=== PATIENT | male | born 1995 | race Caucasian/White ===

== ENCOUNTER 2017-02-07 04:18 | Inpatient (IN) | payer BC, OTHER ==
[~2017-02-07] VITALS: Ht 188 cm; Wt 98.0 kg
[~2017-02-07 04:18] MED LIST: ARIP2TAB3 PO; LISD30CA4 PO; [UNRECOGNIZED DRUG - CODE] PO
--- NOTE | 2017-02-07 04:47 | EMERGENCY ROOM VISIT NOTE ---
History Report prepared by Deandre: Karlene Herrera Under the Supervision of: Dr. Tona Shukla D.O. First contact with patient: 04:27 Chief Complaint: MENTAL HEALTH EVALUATION Stated Complaint: ANXIETY,DEPRESSION,MENTAL HEALTH History of Present Illness EKG The patient is a 21 year old male who presents to the Emergency Room with complaints of worsening anxiety starting earlier today BOX SORTER. The police states that the patient called the police tonight because he wanted his mother to be arrested for trying to kill him through her suggestive mccoy. The police state that they convinced the patient to come be evaluated at the ED tonight. The police state the patient was denying any suicidal or homicidal ideation. The patient states that since he was 4 years old his mother has told him that he suffers from OCD and other mental disorders. The patient states that his freshmen year of college he was suffering from depression which he dealt with by abusing drugs and alcohol. He states due to his self-medication his mother sent him to a 30 day inpatient facility for his alcohol abuse followed by 5 months at a penitentiary house. The patient states that his mother has also made him see several other psychiatrists to treat his mental disorders. The patient states he was prescribed medications for his symptoms bur states that he feels better mentally when not on any medications. The patient states that he last took his medications in September 2016. He states that he is currently taking 12 credits and states that he recently went home for spring and states his interaction with his mother were good. The patient states that recently his anxiety has been good until today when his anxiety worsened. The patient states that he gets about 4 hours of sleep a night, but that he has not yet slept today. The patient denies any suicidal or homicidal ideation as well as denying abdominal pain. Source of History: patient, police Onset: earlier today BOX SORTER Position: other (global) Timing: worsening Associated Symptoms: No abdominal pain Note: Patient denies homicidal ideation or suicidal ideation. Review of Systems See HPI for pertinent positives & negatives. A total of 10 systems reviewed and were otherwise negative. Past Medical & Surgical Medical Problems: (1) No chronic past medical history Family History Cancer Diabetes mellitus Heart disease Hypertension Social History Smoking Status: Former Smoker Alcohol Use: occasionally Marital Status: single Housing Status: lives with roommate Occupation Status: [employer] student Current/Historical Medications No Active Prescriptions or Reported Meds Allergies Coded Allergies: No Known Allergies (Unverified , 02/07/17) Physical Exam Vital Signs Date Time Temp Pulse Resp B/P Pulse Ox O2 Delivery O2 Flow Rate FiO2 02/07/17 05:09 78 20 148/83 98 Room Air 02/07/17 04:20 37.0 70 20 187/97 97 Room Air Physical Exam General: Patient is pleasant, cooperative and hyperverbal. HEENT: Head - normocephalic and atraumatic Pupils are equal, round, and reactive to light. Extraocular eye muscles are intact, and sclera are anicteric. Nose - moist nasal mucosa without discharge. Mouth - moist buccal mucosa. Oropharynx is nonerythematous and there is no tonsillar exudate or edema noted. Neck: Supple; no JVD, nuchal rigidity, cervical lymphadenopathy. Heart: Regular rate and rhythm. There is a normal S1 and S2 with no murmurs, clicks, or gallops appreciated. Lungs: Clear to auscultation bilaterally with no wheezes, rales, or rhonchi. Abdomen: Soft, completely nontender, nondistended, with good bowel sounds. There are no palpable pulsatile masses or hepatosplenomegaly. There is no guarding, rigidity, or rebound noted. Extremities: No evidence of cyanosis, clubbing, or edema. There are easily palpable peripheral pulses. Skin: warm and dry with good turgor and no rashes. Psych:Severely manic, hyperverbal, denies substance abuse at this time. Extremely paranoid. Medical Decision & Procedures Laboratory Results 02/07/17 05:07 02/07/17 05:07 Test 02/07/17 04:32 02/07/17 05:07 Urine Color YELLOW Urine Appearance CLEAR (CLEAR) Urine pH 7.0 (4.5-7.5) Urine Specific [place] 1.003 (1.000-1.030) Urine Protein NEG (NEG) Urine Glucose (UA) NEG (NEG) Urine Ketones 1+ (NEG) Urine Occult Blood TRACE (NEG) Urine Nitrite NEG (NEG) Urine Bilirubin NEG (NEG) Urine Urobilinogen NEG (NEG) Urine Leukocyte Esterase NEG (NEG) Urine WBC (Auto) /hpf (0-5) Urine RBC (Auto) /hpf (0-4) Urine Hyaline Casts (Auto) /lpf (0-5) Urine Epithelial Cells (Auto) /lpf (0-5) Urine Bacteria (Auto) (NEG) Urine RBC 0-4 /hpf (0-4) Urine WBC 0 /hpf (0-5) Urine Epithelial Cells 0-5 /lpf (0-5) Urine Bacteria NEG (NEG) Urine Opiates Screen NEG (NEG) Urine Methadone, Qualitative NEG (NEG) Urine Barbiturates NEG (NEG) Urine Phencyclidine (PCP) Level NEG (NEG) Ur Amphetamine/Methamphetamine NEG (NEG) MDMA (Ecstasy) Screen NEG (NEG) Urine Benzodiazepines Screen NEG (NEG) Urine Cocaine Metabolite NEG (NEG) Urine Marijuana (THC) POS (NEG) Red Blood Count 5.13 M/uL (4.7-6.1) Mean Corpuscular Volume 86.5 fL (80-100) Mean Corpuscular Hemoglobin 31.8 pg (25-34) Mean Corpuscular Hemoglobin Concent 36.7 g/dl (32-36) RDW Standard Deviation 39.9 fL (36.4-46.3) RDW Coefficient of Variation 12.5 % (11.5-14.5) Mean Platelet Volume 8.7 fL (7.4-10.4) Anion Gap 12.0 mmol/L (3-11) Est Creatinine Clear Calc Drug Dose 113.3 ml/min Estimated GFR () 99.6 Estimated GFR (Non- 85.9 BUN/Creatinine Ratio 8.6 (10-20) Calcium Level 9.2 mg/dl (8.5-10.1) Total Bilirubin 1.0 mg/dl (0.2-1) Direct Bilirubin 0.2 mg/dl (0-0.2) Aspartate Amino Transf (AST/SGOT) 29 U/L (15-37) Alanine Aminotransferase (ALT/SGPT) 30 U/L (12-78) Alkaline Phosphatase 67 U/L (45-117) Total Protein 7.8 gm/dl (6.4-8.2) Albumin 4.8 gm/dl (3.4-5.0) Thyroid Stimulating Hormone (TSH) 1.630 uIu/ml (0.300-4.500) Salicylates Level < 1.7 mg/dl (2.8-20) Acetaminophen Level < 2 ug/ml (10-30) Ethyl Alcohol mg/dL < 3.0 mg/dl (0-3) Laboratory results per my review. ED Course 0435: Past medical records reviewed. The patient was evaluated in room A6. A complete history and physical exam was performed. Laboratory studies were drawn as above. 0540: I spoke to the machine adjuster leader case trim and [facility] will come evaluate the patient after he is mentally cleared. 0602: The patient was medically cleared and can now be evaluated by [facility]. 0627: I discussed the case with the staff from [facility] who have evaluated the patient. They have found him to be acutely paranoid, manic, and delusional. They felt he requires inpatient care but the patient is unwilling to be admitted. The machine adjuster leader case trim is filing a 302 petition. We went back to the patient's room to discuss his inpatient care and he was willing to sign himself in voluntarily. Medical Decision The patient is a 21 year old male who presents to the ED with anxiety. Differential diagnosis includes medication noncompliance, substance abuse, acute nav, paranoia, thought disorder and mood disorder. Labs: White Count 11.03 Stable H&H Normal TSH Normal LFTs Glucose 129 Normal Renal function Potassium 3.2 Tox Screen positive for marijuana. Tylenol Aspirin and Alcohol were negative. This is a 21-year-old male patient who presents to the emergency department with extreme paranoia and psychosis. The patient has a history of mental health issues and has not been taking his medications for the past 5 months. He believes that his mother is trying to kill him. He called police night to follow report that his mother was trying to harm him. On exam, the patient was hyperverbal, manic and acutely paranoid. He was cooperative. He was willing to admit himself voluntarily for inpatient psychiatric care. Impression Primary Impression: Acute paranoia Additional Impression: Noncompliance with medications Scribe Attestation The scribe's documentation has been prepared under my direction and personally reviewed by me in its entirety. I confirm that the note above accurately reflects all work, treatment, procedures, and medical decision making performed by me. Departure Information Dispostion Mental Health Acute Care Prescriptions No Active Prescriptions or Reported Meds Referrals No Doctor, Assigned (PCP) Patient Instructions My [facility] Problem Qualifiers
[2017-02-07 04:59] LABS: URINE APPEARANCE CLEAR (CLEAR); URINE BILIRUBIN NEG (NEG); URINE COLOR YELLOW; URINE NITRITE NEG (NEG); URINE SPECIFIC GRAVITY 1.003 (1.000-1.030); UROBILINOGEN NEG (NEG)
[2017-02-07 05:02] LABS: MANUAL MICROSCOPIC REQUIRED? YES; REVIEW REQ? NO
[2017-02-07 05:09] VITALS: O2SAT 98
[2017-02-07 05:11] LABS: URINE RBC 0-4 /hpf (0-4)
[2017-02-07 05:12] LABS: URINE BACTERIA NEG (NEG); URINE WBC 0 /hpf (0-5)
[2017-02-07 05:19] LABS: BENZODIAZEPINE, URINE NEG (NEG); COCAINE,URINE NEG (NEG); PHENCYCLIDINE, URINE NEG (NEG)
[2017-02-07 05:20] LABS: HEMATOCRIT 44.4 % (42-52); MEAN CELL VOLUME 86.5 fL (80-100); MEAN CORPUSCULAR HEMOGLOBIN 31.8 pg (25-34); MEAN CORPUSCULAR HGB CONC 36.7 g/dl (32-36); MEAN PLATELET VOLUME 8.7 fL (7.4-10.4); PLATELET COUNT 283 K/uL (130-400); RED BLOOD COUNT 5.13 M/uL (4.7-6.1); WHITE BLOOD COUNT 11.03 K/uL (4.8-10.8)
[2017-02-07 05:46] LABS: BUN/CREATININE RATIO 8.6 (10-20); CALCIUM 9.2 mg/dl (8.5-10.1); CREATININE 1.2 mg/dl (0.60-1.40); POTASSIUM 3.2 mmol/L (3.5-5.1)
[2017-02-07 05:56] LABS: ACETAMINOPHEN < 2 ug/ml (10-30); THYROID STIMULATING HORMONE 1.63 uIu/ml (0.300-4.500)
[2017-02-07] MEDS ORDERED: BISMUTH SUBSALICYLATE PER ML OMNICELL CHARGE PO PRN (07:15)
[2017-02-07] MEDS ORDERED: MAGNESIUM HYDROXIDE SUSP 30 ML UDC PO PRN (07:15)
[2017-02-07] MEDS ORDERED: hydrOXYzine HCL 25 MG TAB PO PRN ×2 (07:15)
[2017-02-07] MEDS ORDERED: SODIUM CHLORIDE 0.65% NA SOLN 45 ML (OCEAN) PRN (07:15)
[2017-02-07] MEDS ORDERED: ACETAMINOPHEN 325 MG TAB PO PRN (07:15)
[2017-02-07] MEDS ORDERED: ALUMINUM/MAGNESIUM SUSP 30 ML UDC PO PRN (07:15)
[2017-02-07] MEDS ORDERED: NURSING VERBAL MED ORDER ONE (07:15)
[2017-02-07 07:22] VITALS: BP 178/70; PULSE 62; TEMP 36.6; BMI 27.7
[2017-02-07] MEDS ORDERED: LORAZEPAM 1 MG TAB PO ONE (09:15)
[2017-02-07] MEDS ORDERED: RISPERIDONE ODT 1MG PO ONE (09:15)
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
[2017-02-07] MEDS: LORAZEPAM 1 MG TAB PO SCH (21:01)
[2017-02-07] MEDS: RISPERIDONE ODT 1MG PO SCH (21:01)
[2017-02-08 07:03] VITALS: BP_SYST 131; BP_SYST 144; BP_DIAS 81; BP_DIAS 87; PULSE 57; PULSE 61; TEMP 36.5
[2017-02-08 07:04] VITALS: Ht 188 cm; Wt 98.0 kg
[2017-02-08] MEDS: RISPERIDONE ODT 1MG PO SCH ×2 (07:40→21:42)
[2017-02-08] MEDS: LORAZEPAM 1 MG TAB PO SCH ×2 (07:40→21:42)
[2017-02-08 08:17] LABS: CHOLESTEROL/HDL RATIO 2.9
--- NOTE | 2017-02-08 10:10 | Psychiatric Progress Notes ---
Progress Note Date of Service Feb 08, 2017. Interval History 21 yo [employer] student, admitted voluntarily with acute psychosis, believing that his parents are conspiring to kill him. Chief Complaint "Calmer.". Subjective Patient was seen & assessed interval progress reviewed with Treatment Team. Nursing reports that the patient slept during the evening and night yesterday. Today he says that he feels "calmer" and recognizes the benefit of the meds. He continues to believe that his parents are out to kill him and wants no contact with them. "These are not just thoughts, they are my reality.". He says that he does not want to be here but understands why he is here, and that we will need to observe him for several days, but does not think he needs to be here beyond 72 hrs. When encouraged, he says that he is willing to attend groups so that we can observe his interactions with others. He denies SI/HI, denies aud/vis hallucinations. Review of Systems Constitutional: No chills, No fatigue, No fever, No problem reported, No sweats , No weakness, No weight loss ENT: No dental problems, No hearing loss, No nasal symptoms, No problem reported, No sore throat, No tinnitus, No trouble swallowing, No unusual epistaxis Respiratory: No cough, No dyspnea at rest, No dyspnea on exertion, No hemoptysis, No problem reported, No shortness of breath, No sputum, No wheezing Cardiovascular: No PND, No chest pain, No claudication, No edema, No orthopnea , No palpitations, No problem reported Abdomen: No GI bleeding, No constipation, No diarrhea, No nausea, No pain, No problem reported, No vomiting Musculoskeletal: No calf pain, No joint pain, No muscle pain, No problem reported, No swelling Neurologic: No balance problems, No memory loss, No numbness/tingling, No paralysis, No problem reported, No vertigo, No weakness Psychiatric: + problem reported (paranoid delusions that parents are trying to kill him) Integumentary: No bleeding, No color change, No itch, No new/changing skin lesions, No problem reported, No rash Sleep Information Total Hours of Sleep: 6.50 Meal Information Percent of Breakfast Consumed: 90 Percent of Lunch Consumed: 0 Percent of Dinner Consumed: 50 Mental Status Exam During interview pt is: alert and oriented, cooperative Appearance: appropriately dressed Eye contact is: good Motor behavior is: no abnormal motor movements Speech: normal in rate, rhythm & volume Affect: flat Mood is: irritable Thought process: goal directed Thought content: paranoid, delusions Suicidal thought are: denied Homicidal thoughts are: denied Hallucinations: denies auditory, denies visual Cognition: memory grossly intact, attention grossly intact Intelligence estimated to be: average Insight: impaired Judgement: impaired Impression The patient remains grossly paranoid, but with less agitation today. He does not want to be in the hospital but willing to remain today so that we can continue to evaluate and treat. Slept well. Will continue risperdal 1 mg. BID and ativan 1 mg. BID and encouraged use of prns if mind racing or distressed, which he agreed to do. Parents are here in town, but he is unwilling to allow any contact due to his paranoia. Continued Inpatient Care Continues to require inpatient care due to the severity of his condition and inability to manipulate information in a reality based manner. Plan (1) Unspecified psychosis 02/08 - continue rispderdal 1 mg. BID and encourage prns - Continue ativan 1 mg. BID and encourage prns - Involve parents when patient willing - Reality orientation - Q 15 min checks for safety - Encourage participation in group and individual counseling - DC MNPR as patient has been cooperative - The patient will need psychiatric aftercare (2) Cannabis abuse 02/08 - Recommend abstinence Discharge / Aftercare Planning Primary Care Physician: Name: [facility] [phone] Psychiatrist: Name: Dr Cole last Therapist: Name: kat Pocket Setter Lockstitch: Name: kat Visit Code E&M Code: 71035 Risk Factors Assessment Male: Yes : Yes /single/: Yes Higher / Fall in social status: No Access to guns: No Health problems: No Mental Health Diagnoses: Yes Substance use disorders: Yes Previous psychiatric stay: No Hopelessness: No Smoker: No Protective Factors Assessment : No Responsible for young children: No Employed: No Stable relationships: No Supportive family: Yes Good rapport with provider: No Data Vital Signs Last 24 Hrs: Date Time Temp Pulse Resp B/P Pulse Ox O2 Delivery O2 Flow Rate FiO2 02/08/17 07:03 36.5 57 16 144/81 61 131/87 Meds Administered Last 24 Hrs: Meds Administered (Past 24Hrs) Medications (Trade) Dose Ordered Sig/Meño Route Start Time Stop Time Status Last Admin Dose Admin Risperidone (Risperdal M Tab) 1 mg BID PO 02/07/17 22:00 03/09/17 21:59 02/08/17 07:40 1 MG Risperidone (Risperdal M Tab) 1 mg 0915 ONCE PO 02/07/17 09:15 02/07/17 09:38 DC 02/07/17 09:47 1 MG Lorazepam (Ativan Tab) 1 mg BID PO 02/07/17 22:00 03/09/17 21:59 02/08/17 07:40 1 MG Lorazepam (Ativan Tab) 1 mg 0915 ONCE PO 02/07/17 09:15 02/07/17 09:38 DC 02/07/17 09:47 1 MG Lab Results Last 24 Hrs: Last 24 Hours Test 02/08/17 07:31 Fasting Glucose 90 mg/dl Triglycerides Level 66 mg/dl Cholesterol Level 163 mg/dl HDL Cholesterol 56 mg/dl LDL Cholesterol, Calculated 94 mg/dl VLDL Cholesterol, Calculated 13 mg/dl Cholesterol/HDL Ratio 2.9
[2017-02-08] MEDS: LORAZEPAM 1 MG TAB PO PRN ×2 (14:42→18:54)
[2017-02-08] MEDS: RISPERIDONE ODT 1MG PO PRN ×2 (14:43→18:54)
[2017-02-09 06:45] VITALS: BP_SYST 134; BP_SYST 143; BP_DIAS 65; BP_DIAS 79; PULSE 126; PULSE 92; TEMP 36.6
[2017-02-09] MEDS: LORAZEPAM 1 MG TAB PO SCH (08:03)
[2017-02-09] MEDS: RISPERIDONE ODT 1MG PO SCH ×2 (08:03→21:05)
[2017-02-09] MEDS: LORAZEPAM 1 MG TAB PO PRN (12:04)
[2017-02-09] MEDS: RISPERIDONE ODT 1MG PO PRN (12:12)
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
[2017-02-09 15:15] VITALS: PULSE 96
[2017-02-09] MEDS: LORAZEPAM 0.5 MG TAB PO SCH (21:04)
[2017-02-10 06:45] VITALS: BP_SYST 132; BP_SYST 138; BP_DIAS 66; BP_DIAS 82; PULSE 111; PULSE 71; TEMP 36.8
[2017-02-10] MEDS: LORAZEPAM 0.5 MG TAB PO SCH (07:55)
[2017-02-10] MEDS: RISPERIDONE ODT 1MG PO SCH ×2 (07:55→21:38)
--- NOTE | 2017-02-10 13:29 | Psychiatric Progress Notes ---
Progress Note Date of Service Feb 10, 2017. Interval History 21 yo [employer] student, admitted voluntarily with acute psychosis, believing that his parents are conspiring to kill him. Chief Complaint "I really just want to get out of here". Subjective Patient was seen & assessed interval progress reviewed with Treatment Team. Parents updated by phone with his permission. Reviewed that appears to be substance induced psychosis with probably underlying mood disorder ie bipolar but cannot fully delineate in context of acute episode. Obviously combination of factors as misusing a workout supplement that probably included caffeine and/ or high dose B vitamins. He states he is tolerating medications and thoughts have cleared. He is no longer having delusions about his psychiatrist or family and is focussed abstinence from MJ. Review of Systems Psych: denies symptoms other than stated above Constitutional: denied Cardiovascular: denied GI: denied Neurologic: denied Remainder of 10 body systems also reviewed and denied other than noted above. Sleep Information Total Hours of Sleep: 6.50 Meal Information Percent of Breakfast Consumed: 50 Percent of Lunch Consumed: 90 Percent of Dinner Consumed: 75 Mental Status Exam During interview pt is: alert and oriented, cooperative Appearance: appropriately dressed Eye contact is: good Motor behavior is: psychomotor agitation (restless) Speech: other (fast but not pressured) Affect: labile (switched rapidly from euthymic to tearful and anxious, appropriately tearful with staff after MD visit) Mood is: other ("ready") Thought process: goal directed Thought content: reality based without delusions Suicidal thought are: denied Homicidal thoughts are: denied Hallucinations: denies auditory, denies visual Cognition: memory grossly intact, attention grossly intact Intelligence estimated to be: average Insight: limited Judgement: limited Impression Paranoia and agitation are improved. Speech still seems fast but family feel his irritability and voice on phone seem baseline. He is currently refusing to rescind his 72 hour notice, he is disappointed but agreeable to stay in hospital until family visit in person and can assist him with transitioning home. There is no current indication for involuntary commitment but will be monitored overnight. Family aware 72 hour notice expires tomorrow at 2 pm. Continued Inpatient Care Continues to require inpatient care due to the severity of his condition and inability to manipulate information in a reality based manner. Plan (1) Unspecified psychosis 02/08 - continue rispderdal 1 mg. BID and encourage prns - Continue ativan 1 mg. BID and encourage prns - Involve parents when patient willing - Reality orientation - Q 15 min checks for safety - Encourage participation in group and individual counseling - DC MNPR as patient has been cooperative - The patient will need psychiatric aftercare 02/09 - continue risperidone - Taper lorazepam 0.5mg bid x 2 days, then 0.5mg hs x2 days, then stop. - Encourage groups attendance and participation. - Family meeting - now willing to sign KATELIN for parents. - Discharge planning. 02/10 --refused Ativan this am, no subjective withdrawal, has Ativan prn should agitation recur --will convert Risperdal to regular tab upon discharge (2) Cannabis abuse 02/08 - Recommend abstinence 02/10 - Brief intervention was offered and accepted; Intervention (if performed) was [greater than 5] min in length. Brief interventions include: 1. Assess Readiness to Quit, 2. Advise: Help Patient to Reduce or Abstain from MJ and supplement 3. Agree: Set Specific, Feasible Goals, 4. Assist: Anticipate barriers, Problem-Solving Solutions. Social work to 5. Arrange: Referrals to appropriate treatment. Summary of intervention: The patient is in action stage with regards to transtheoretical model of change. The patient is advised to abstain from MJ due to thought disorder/mood issues. The patient agreed to substance use counseling as part of his outpatient therapy at a [facility] to [facility]. Discharge / Aftercare Planning Primary Care Physician: Name: [facility] [phone] Phone Number: [phone] Appointment Notes: as needed Psychiatrist: Name: Dr Cole Date of Appointment: Feb 17, 2017 Time of Appointment: 11:15am Therapist: Name: Musa [facility] Phone Number: [phone] Date of Appointment: Feb 13, 2017 Time of Appointment: 10:30am Appointment Notes: [address] [facility] [address] Therapeutic Consultant: Name: kat Visit Code E&M Code: 30393 Risk Factors Assessment Male: Yes : Yes /single/: Yes Higher / Fall in social status: No Access to guns: No Health problems: No Mental Health Diagnoses: Yes Substance use disorders: Yes Previous psychiatric stay: No Hopelessness: No Smoker: No Protective Factors Assessment : No Responsible for young children: No Employed: No Stable relationships: No Supportive family: Yes Good rapport with provider: No Data Vital Signs Last 24 Hrs: Date Time Temp Pulse Resp B/P Pulse Ox O2 Delivery O2 Flow Rate FiO2 02/10/17 06:45 36.8 111 16 138/66 71 132/82 02/09/17 15:15 96 Meds Administered Last 24 Hrs: Meds Administered (Past 24Hrs) Medications (Trade) Dose Ordered Sig/Meño Route Start Time Stop Time Status Last Admin Dose Admin Lorazepam (Ativan Tab) 0.5 mg Taper BID PO 02/09/17 22:00 02/10/17 12:37 DC 02/09/17 21:04 0.5 MG
[2017-02-10] MEDS: LORAZEPAM 1 MG TAB PO PRN (17:36)
[2017-02-11 06:55] VITALS: BP_SYST 138; BP_SYST 143; BP_DIAS 80; BP_DIAS 85; PULSE 72; PULSE 75; TEMP 36.6
[2017-02-11] MEDS: RISPERIDONE ODT 1MG PO SCH (08:45)
[2017-02-11] MEDS ORDERED: RISP1TAB3 PO (09:33)
--- NOTE | 2017-02-11 09:39 | Discharge Instructions ---
Discharge Information Report Includes Report will include the: Discharge Instructions & Summary Admission Admission Date / Time: Feb 07, 2017 at 07:04 Reason for Admission: Psychosis Disorder, Nos Discharge Discharge Diagnosis / Problem: unspecified psychotic disorder Condition at Discharge: Good Discharge Goals Goal(s): Improve function, Improve disease control Activity Recommendations Activity Limitations: resume your previous activity . Instructions / Follow-Up Instructions / Follow-Up . SPECIAL CARE INSTRUCTIONS: 1. Follow through with your scheduled aftercare appointments. If unable to keep an appointment, please call to reschedule. 2. Take your medication only as prescribed. Medication should not be changed or stopped without the approval of your doctor. In the event of worsening symptoms or concerns about side effects, contact your doctor immediately. 3. Utilize new healthy coping skills, anger management skills, and stress management skills learned during your hospitalization. Journal feelings and process them with a support person. Identify stressors or situations that may result in relapse, deterioration or inappropriate behaviors and develop a plan to deal with those issues. 4. If your coping skills are ineffective and you are in crisis, contact your outpatient providers for direction. If unable to reach your providers, please call the CAN HELP LINE AT or go to the closest Emergency Room. 5. Avoid alcohol and un-prescribed drugs. 6. You have been provided with the Mental Health Advance Directives Pamphlet for your review. AFTERCARE APPOINTMENTS: * Please call your insurance company prior to your scheduled appointment to confirm your aftercare providers are covered. Take your insurance information to your appointments. . Discharge / Aftercare Planning Primary Care Physician: Name: [facility] [phone] Phone Number: [phone] Appointment Notes: as needed Psychiatrist: Name: Dr Cole Date of Appointment: Feb 17, 2017 Time of Appointment: 11:15am Therapist: Name Of Therapist: [facility] Phone Number: [phone] Date of Appointment: Feb 13, 2017 Time of Appointment: 10:30am Appointment Comments: [address] [facility] [address] Chairman Of The Board: Name: kat . Follow-Up Care Plan for Follow-Up Care: recommend that you follow up with S for blood pressure monitoring. Current Hospital Diet Patient's current hospital diet: Regular Diet Discharge Diet Recommended Diet: Regular Diet Procedures Procedures Performed: No Pending Studies Pending Studies at Discharge: No Medical Emergencies . Who to Call and When: Medical Emergencies: For questions or emergencies related to your hospital stay, please contact the Inpatient Behavioral Health Unit at [phone]. A entry level paralegal is on-call 12/06 for the Behavioral Health Unit for emergencies At any time you feel your situation is an emergency, you may also call 911 immediately. . Non-Emergent Contact Non-Emergency issues call your: Primary Care Provider, Psychiatrist, Therapist Advance Directives Existing Advance Directive: No Do You Have an Existing Mental: No Existing Living Will: No Existing Power of Vocational Nurse: No Advance Directives Info Given: To Pt/S.O. Advance Directives Reason: Declines as Mental Health Visit. Discharge Summary Admission HPI Per the Admitting provider: See H&P. Hospital Course (1) Unspecified psychosis 02/08 - continue rispderdal 1 mg. BID and encourage prns - Continue ativan 1 mg. BID and encourage prns - Involve parents when patient willing - Reality orientation - Q 15 min checks for safety - Encourage participation in group and individual counseling - DC MNPR as patient has been cooperative - The patient will need psychiatric aftercare 02/09 - continue risperidone - Taper lorazepam 0.5mg bid x 2 days, then 0.5mg hs x2 days, then stop. - Encourage groups attendance and participation. - Family meeting - now willing to sign KATELIN for parents. - Discharge planning. 02/10 --refused Ativan this am, no subjective withdrawal, has Ativan prn should agitation recur --will convert Risperdal to regular tab upon discharge (2) Cannabis abuse 02/08 - Recommend abstinence 02/10 - Brief intervention was offered and accepted; Intervention (if performed) was greater than 5 min in length. Brief interventions include: 1. Assess Readiness to Quit, 2. Advise: Help Patient to Reduce or Abstain from MJ and supplement 3. Agree: Set Specific, Feasible Goals, 4. Assist: Anticipate barriers, Problem-Solving Solutions. Social work to 5. Arrange: Referrals to appropriate treatment. Summary of intervention: The patient is in action stage with regards to transtheoretical model of change. The patient is advised to abstain from MJ due to thought disorder/mood issues. The patient agreed to substance use counseling as part of his outpatient therapy at [facility]. Risk Factors Assessment Male: Yes : Yes /single/: Yes Higher / Fall in social status: No Access to guns: No Health problems: No Mental Health Diagnoses: Yes Substance use disorders: Yes Previous psychiatric stay: No Hopelessness: No Smoker: No Protective Factors Assessment : No Responsible for young children: No Employed: No Stable relationships: No Supportive family: Yes Good rapport with provider: No Day of Discharge Assessment Did not express any delusions overnight and behaviorally appropriate in unit activities. Said he spoke with his parents this am about joining a fraternity but states it was more of a thought, reviewed focus on return to school/ recovery and follow-up appointments. He is aware that [facility] may not support his plan to abstain from MJ. Reviewed that Risperdal will be switched to tablets. He is not able to recall the name of the supplement that is his roommate's but states he won't take it again. He attributes borderline BPs here to anxiety about discharge this am. He is alert and cooperative. His speech is normal in rate and volume today and he is actually thankful that he remained in the hospital overnight as he feels "even more 100% today". He denies SI/HI/cat and delusions. His thoughts are organized. There is not evidence of medication side effects. Laboratory Test 02/07/17 04:32 02/07/17 05:07 02/08/17 07:31 Urine Color YELLOW Urine Appearance CLEAR Urine pH 7.0 Urine Specific [place] 1.003 Urine Protein NEG Urine Glucose (UA) NEG Urine Ketones 1+ Urine Occult Blood TRACE Urine Nitrite NEG Urine Bilirubin NEG Urine Urobilinogen NEG Urine Leukocyte Esterase NEG Urine WBC (Auto) Urine RBC (Auto) Urine Hyaline Casts (Auto) Urine Epithelial Cells (Auto) Urine Bacteria (Auto) Urine RBC 0-4 Urine WBC 0 Urine Epithelial Cells 0-5 Urine Bacteria NEG Urine Opiates Screen NEG Urine Methadone, Qualitative NEG Urine Barbiturates NEG Urine Phencyclidine (PCP) Level NEG Ur Amphetamine/Methamphetamine NEG MDMA (Ecstasy) Screen NEG Urine Benzodiazepines Screen NEG Urine Cocaine Metabolite NEG Urine Marijuana (THC) POS Urine Marijuana (THC Carboxy Acid) 98 White Blood Count 11.03 Red Blood Count 5.13 Hemoglobin 16.3 Hematocrit 44.4 Mean Corpuscular Volume 86.5 Mean Corpuscular Hemoglobin 31.8 Mean Corpuscular Hemoglobin Concent 36.7 RDW Standard Deviation 39.9 RDW Coefficient of Variation 12.5 Platelet Count 283 Mean Platelet Volume 8.7 Sodium Level 138 Potassium Level 3.2 Chloride Level 104 Carbon Dioxide Level 22 Anion Gap 12.0 Blood Urea Nitrogen 10 Creatinine 1.20 Est Creatinine Clear Calc Drug Dose 113.3 Estimated GFR () 99.6 Estimated GFR (Non- 85.9 BUN/Creatinine Ratio 8.6 Random Glucose 129 Calcium Level 9.2 Total Bilirubin 1.0 Direct Bilirubin 0.2 Aspartate Amino Transferase (AST) 29 Alanine Aminotransferase (ALT) 30 Alkaline Phosphatase 67 Total Protein 7.8 Albumin 4.8 Thyroid Stimulating Hormone (TSH) 1.630 Salicylates Level < 1.7 Acetaminophen Level < 2 Ethyl Alcohol mg/dL < 3.0 Fasting Glucose 90 Triglycerides Level 66 Cholesterol Level 163 HDL Cholesterol 56 LDL Cholesterol, Calculated 94 VLDL Cholesterol, Calculated 13 Cholesterol/HDL Ratio 2.9 Total Time Total Time Spent (min): Greater than 30 minutes Total Time Included: examination of the patient, discharge planning, medication reconciliation Tobacco Cessation at Discharge Smoking Status: Never Smoker FDA approved Prescription: non-smoker
== END 2017-02-11 12:15 | disposition home or self-care (01) | DRG 897 ==
LOC: C.EDB 04:19 → C.MHU 07:04
PROVIDERS: ADMIT Student in an Organized Health Care Education/Training Program; ATTEND Psychiatry & Neurology Psychiatry
DX: F15.150 Other stimulant abuse with stimulant-induced psychotic disorder with delusions (principal); F31.9 Bipolar disorder, unspecified; Z91.14 Patient's other noncompliance with medication regimen; G47.00 Insomnia, unspecified; F12.10 Cannabis abuse, uncomplicated; F42.9 Obsessive-compulsive disorder, unspecified; Z87.891 Personal history of nicotine dependence